=== PATIENT | male | born 1935 | race Caucasian/White ===

== ENCOUNTER 2017-03-15 19:14 | Emergency (ER) | payer OTHER ==
[2017-03-15 19:19] VITALS: BP 104/84
[2017-03-15] MEDS ORDERED: Phenylephrine 0.5% Nasal Spray 15 ML Bot NASRT ONE (19:51)
[2017-03-15] MEDS ORDERED: Albuterol 0.083% 2.5 MG/3 ML Neb Soln NEB ONE (19:56)
--- NOTE | 2017-03-15 20:09 | EDM.PDOC ---
ED HPI GENERAL MEDICAL PROBLEM - General Chief Complaint: ENT Problem Stated Complaint: NOSE BLEED NOT STOPPING, [id number] Time Seen by Provider: 03/15/17 19:20 Source of Information: Reports: Patient, Family History Limitations: Reports: No Limitations - History of Present Illness INITIAL COMMENTS - FREE TEXT/NARRATIVE: C/O nose bleed since 3:30 today. Intermittent stopping for few minutes then starts back up. Hx chronic intermittent A'fib, had been on Coumadin until one week ago. Medication stopped due to high INR. Diagnosed recently with fungal lung infection and antifungal medication raising INR. Bleeding primarily from right side. On oxygen at night, does not have humidifier attached with O2 concentrator. Onset: Today - Related Data Allergies Allergy/AdvReac Type Severity Reaction Status Date / Time No Known Allergies Allergy Verified 03/15/17 19:19 Home Meds: Home Meds Aspirin [Ecotrin] 81 mg PO DAILY 03/15/17 [History] Fluticasone/Vilanterol [Breo Ellipta 200-25 Mcg INH] 1 dose INH DAILY 03/15/17 [ History] Furosemide [Furosemide] 40 mg PO DAILY 03/15/17 [History] Ipratropium/Albuterol Sulfate [Iprat-Albut 0.5-3(2.5) MG/3 ML] 3 ml IH QID PRN 03/15/17 [History] Itraconazole [Sporanox] 100 mg PO BID 03/15/17 [History] Metoprolol Tartrate [Metoprolol Tartrate] 25 mg PO DAILY 03/15/17 [History] Pantoprazole Sodium 40 mg PO DAILY 03/15/17 [History] Potassium Chloride [Klor-Con M20] 20 meq PO DAILY 03/15/17 [History] Umeclidinium [place] [Incruse Ellipta*] 62.5 mcg INH DAILY 03/15/17 [History] Voriconazole [Voriconazole] 200 mg PO DAILY 03/15/17 [History] Warfarin [Coumadin] 1 mg PO DAILY 03/15/17 [History] atorvaSTATin Calcium [Atorvastatin Calcium] 80 mg PO QPM 03/15/17 [History] Past Medical History HEENT History: Reports: Epistaxis Cardiovascular History: Reports: Afib Respiratory History: Reports: Pneumonia, Recurrent Other Respiratory History: blastomytosis Gastrointestinal History: Reports: GERD Musculoskeletal History: Reports: Fracture - Past Surgical History Cardiovascular Surgical History: Reports: Coronary Artery Bypass Dermatological Surgical History: Reports: Skin Biopsy Social & Family History - Tobacco Use Smoking Status *Q: Former Smoker Used Tobacco, but Quit: Yes Month Tobacco Last Used: 4 years ago - Recreational Drug Use Recreational Drug Use: No ED ROS ENT - Review of Systems Review Of Systems: See Below Constitutional: Reports: No Symptoms HEENT: Reports: Nosebleed (right) Respiratory: Reports: Shortness of Breath (chronic), Wheezing (chronic), Cough ( chronic), Other (recent dx fungal lung infection) Cardiovascular: Reports: Edema (admits not taking lasix as directed), Other ( chronic a fib) GI/Abdominal: Reports: No Symptoms : Reports: No Symptoms Musculoskeletal: Reports: No Symptoms Skin: Reports: Bruising Neurological: Reports: No Symptoms ED EXAM, ENT - Physical Exam Exam: See Below Exam Limited By: No Limitations General Appearance: Alert, Anxious, Mild Distress Eye Exam: Bilateral Eye: EOMI Ears: Normal External Exam Nose: Active Bleeding (trickle from right. ) Mouth/Throat: Bleeding (posterior right drainge.) Head: Atraumatic, Normocephalic Respiratory/Chest: Decreased Breath Sounds (left mid to base), Wheezing (right) . No: Normal Breath Sounds Cardiovascular: Normal Peripheral Pulses, Irregularly Irregular. No: No Edema GI/Abdominal: Normal Bowel Sounds Extremities: Pedal Edema (bilateral 3+) Neurological: Alert, Oriented, Normal Cognition Skin: Warm, Dry ED ENT PROCEDURES - Epistaxis Procedure Indication: Epistaxis Recent anticoagulants/antiplatlets: Yes Uncontrolled HTN: No Recent septal/nasal surgery: No Site of bleeding: Right Nare Clearing of clots: Patient Blew Nose Topical Meds: Phenylephrine Ice pack to area: No Complications: No Course - Vital Signs Last Recorded V/S: Last Vital Signs Temp 97.7 F 03/15/17 19:16 Pulse 91 03/15/17 19:16 Resp 18 03/15/17 19:16 BP 104/84 03/15/17 19:16 Pulse Ox 95 03/15/17 19:16 - Orders/Labs/Meds Orders: Active Orders 24 hr Category Date Time Status RT Aerosol Therapy [RC] ASDIRECTED Care 03/15/17 19:56 Active Labs: Laboratory Tests 03/15/17 03/15/17 03/15/17 Range/Units 20:00 20:00 20:00 WBC 6.0 (5.0-10.0) 10^3/uL RBC 2.84 L (4.6-6.2) 10^6/uL Hgb 8.8 L (14.0-18.0) g/dL Hct 28.6 L (40.0-54.0) % MCV 100.7 H (80-100) fL MCH 31.0 (27.0-34.0) pg MCHC 30.8 L (33.0-35.0) g/dL Plt Count 147 L (150-450) 10^3/uL Neut % (Auto) 58.0 (42.2-75.2) % Lymph % (Auto) 19.9 L (20.5-50.1) % Cross % (Auto) 20.7 H (2-8) % Eos % (Auto) 0.7 L (1.0-3.0) % Baso % (Auto) 0.7 (0.0-1.0) % PT 31.5 H (9.0-12.0) SEC INR 3.1 H (0.9-1.2) Sodium 140 (135-145) mmol/L Potassium 4.9 (3.6-5.0) mmol/L Chloride 108 (101-111) mmol/L Carbon Dioxide 20.0 L (21.0-31.0) mmol/L Anion Gap 16.9 BUN 27 H (7-18) mg/dL Creatinine 1.3 (0.6-1.3) mg/dL Est Cr Clr Drug Dosing 38.11 mL/min Estimated GFR (MDRD) 53 BUN/Creatinine Ratio 20.76 Glucose 91 (74-105) mg/dL Calcium 9.0 (8.4-10.2) mg/dl Total Bilirubin 1.0 (0.2-1.0) mg/dL AST 33 (10-42) IU/L ALT 19 (10-60) IU/L Alkaline Phosphatase 102 (42-121) IU/L B-Natriuretic Peptide 1140 H (0-100) pg/ml Total Protein 7.3 (6.7-8.2) g/dl Albumin 3.7 (3.2-5.5) g/dl Globulin 3.6 Albumin/Globulin Ratio 1.03 Meds: Medications Discontinued Medications Generic Name Dose Route Start Last Admin Trade Name Trent PRN Reason Stop Dose Admin Albuterol 2.5 mg 03/15/17 19:56 03/15/17 20:19 Proventil Neb Soln NEB 03/15/17 19:57 2.5 mg ONETIME ONE Administration Phenylephrine HCl 1 ml 03/15/17 19:51 03/15/17 20:17 Marcus-Synephrine 0.5% Regular Nasal [place] NASRT 03/15/17 19:52 1 ml ONETIME ONE Administration - Re-Assessments/Exams Free Text/Narrative Re-Assessment/Exam: slight trickle after maintaining pressure. moderate clot anterior right nare. Neosynephrine to right nare, pressure. Bleeding ceased, monitored without any further bleeding. Departure - Departure Time of Disposition: 21:18 Disposition: Home, Self-Care 01 Condition: Fair Clinical Impression: Epistaxis, Peripheral edema, History of fungal disease Anemia Qualifiers: Anemia type: unspecified type Qualified Code(s): D64.9 - Anemia, unspecified - Discharge Information Instructions: Nosebleed, [id number] Forms: ED Department Discharge Additional Instructions: humidification increase lasix to twice daily for 2 days follow up with PCP regarding anemia, urgent follow up if increased SOB, dizziness if nose bleed restarts, gently , blow nose , 2 sprays neosynephrine and apply pressure, if not resolved then return to ED - My Orders Last 24 Hours: My Active Orders 03/15/17 19:56 RT Aerosol Therapy [RC] ASDIRECTED - Assessment/Plan Last 24 Hours: My Active Orders 03/15/17 19:56 RT Aerosol Therapy [RC] ASDIRECTED
== END 2017-03-15 21:23 | disposition home or self-care (01) ==
LOC: DL.ED 19:14
DX: R04.0 Epistaxis (principal); D64.9 Anemia, unspecified; R60.9 Edema, unspecified; R06.02 Shortness of breath; I48.91 Unspecified atrial fibrillation; K21.9 Gastro-esophageal reflux disease without esophagitis; Z95.1 Presence of aortocoronary bypass graft; Z87.01 Personal history of pneumonia (recurrent); Z79.899 Other long term (current) drug therapy; Z87.891 Personal history of nicotine dependence; Z79.82 Long term (current) use of aspirin; Z79.01 Long term (current) use of anticoagulants
CPT/HCPCS: 36415; 80053; 83880; 85025; 85610; 99283; A9270; J7620